=== PATIENT | female | born 1970 | race Caucasian/White ===

== ENCOUNTER → 2023-03-17 08:56 | Outpatient (CLI) | payer BC, SELFPAY ==
--- NOTE | ~2023-03-17 | US_ITS ---
Abdominal Sonogram: Real-time sonographic imaging of the abdomen was performed. Clinical History: Epigastric pain Findings: The liver appears echogenic, with no evidence of mass lesion or bile duct dilatation. Main portal vein demonstrates normal direction of flow. The spleen is normal in size without evidence of focal lesion. The gallbladder is well distended, and appears normal with no evidence of gallstone or wall thickening. The common bile duct measures 4 mm. The visualized pancreas, aorta, and IVC are un remarkable. The right kidney measures 9.0 cm in length and the left kidney measures 10.4 cm. There is no hydronephrosis or renal calculus. Impression: Diffuse fatty infiltration of the liver. Reviewed, dictated and finalized at location M. Impression: Diffuse fatty infiltration of the liver.
== END ==
PROVIDERS: PCP Physician Assistant; Visit Provider Physician Assistant
DX: R10.13 Epigastric pain (principal); K76.0 Fatty (change of) liver, not elsewhere classified
CPT/HCPCS: 76700

== ENCOUNTER 2023-04-20 07:28 | Outpatient (CLI) | payer BC, SELFPAY ==
--- NOTE | ~2023-04-20 | NM_ITS ---
EXAMINATION: NM hepatobiliary wo pharm DATE: 04/20/2023 10:41 COMPUTER BOOKKEEPER INDICATION: Epigastric pain COMPARISON: Ultrasound dated 03/17/2023. TECHNIQUE: 5 mCi Tc-99m mebrofenin (Choletec) was administered intravenously. Scintigraphic images o f the abdomen were obtained for one hour. At the 1 hour time point, the patient drank 8 oz Ensure, an d imaging was continued for 60 minutes. Gallbladder ejection fraction was calculated by the technolog ist. FINDINGS: There is normal clearance of radiotracer from the blood pool. There is homogeneous tracer u ptake by the liver. Activity progresses to the bowel and gallbladder. The gallbladder ejection fract ion is 72%. Note that with this technique, normal GBEF >= 33%. IMPRESSION: 1. Normal hepatobiliary scan. Reviewed, dictated and finalized at location A. UTER BOOKKEEPER
== END 2023-04-20 07:29 | disposition home or self-care (01) ==
PROVIDERS: PCP Physician Assistant; Visit Provider Nurse Practitioner Family
DX: R10.13 Epigastric pain (principal)
CPT/HCPCS: 78226; A9537

== ENCOUNTER 2023-08-09 14:30 | Outpatient (CLI) | payer BC, SELFPAY ==
--- NOTE | 2023-08-09 14:41 | ECG_ITS ---
Measurements Intervals Carriere Rate: 73 P: 40 IA: 177 QRS: 4 QRSD: 82 T: 49 QT: 389 QTc: 430 Interpretive Statements SINUS RHYTHM MINIMAL VOLTAGE CRITERIA FOR LVH, CONSIDER NORMAL VARIANT [MEETS CRITERIA IN ONE OF: R(aVL), S(V1), R(V5), R(V5/V6)+S(V1)] NONSPECIFIC T-WAVE ABNORMALITY BORDERLINE ECG NO PREVIOUS ECG AVAILABLE FOR COMPARISON Electronically Signed On 08-09-2023 15:42:45 FIELD TRAINER by Mike Gutierrez M.D.
[2023-08-09 15:37] LABS: Anion Gap 7 mmol/L (8-16); Blood Urea Nitrogen 7 mg/dL (7-17); Calcium 9.6 mg/dL (8.4-10.2); Carbon Dioxide 30 mmol/L (22-30); Chloride 102 mmol/L (98-107); Estimated Glomerular Filt Rate > 60; Glucose 123 mg/dL (65-110); Potassium 3.5 mmol/L (3.4-5.0); Sodium 139 mmol/L (137-145)
== END 2023-08-09 14:31 | disposition home or self-care (01) ==
PROVIDERS: Anesthesiology; PCP Nurse Practitioner Family; Visit Provider Surgery
DX: K44.9 Diaphragmatic hernia without obstruction or gangrene (principal); Z79.899 Other long term (current) drug therapy; I47.10 Supraventricular tachycardia, unspecified; Z01.818 Encounter for other preprocedural examination
CPT/HCPCS: 36415; 80048; 86850; 86900; 86901; 93005

== ENCOUNTER 2023-08-16 01:11 | Day surgery (SDC) | payer BC, SELFPAY ==
[2023-08-09 11:05] VITALS: BMI 33.9
--- NOTE | 2023-08-09 11:10 | PC.NURSE ---
Report to the Outpatient Waiting Room, entrance under the green pavilion located off [facility], at time 11:30 on date 08/16/23. Planned Procedure Time: 1:30. Time changes happen often and if your time is changed the preop area will call you the afternoon before. - You and your visitor will be asked to self-screen and do not enter if you have any COVID symptoms. - A mask is optional within the hospital at this time. Patients may have clear liquids FOR DINNER NIGHT BEFORE SURGERY. - No food from midnight until time of surgery Take the following medications with a SIP of water the morning of surgery: NONE DO NOT STOP ANY OF YOUR OTHER PRESCRIPTION MEDICATIONS PRIOR TO SURGERY ?EXCEPT THE FOLLOWING Medications to discontinue per physician: N/A Date to take last dose: N/A Please no make-up, nail uzbek, hairspray, perfume, deodorant, or body powder the day of surgery. No jewelry (including any body piercings) or valuables the day of surgery, leave them at home. Please take a shower or bath the night before, or the morning of, surgery with an antibacterial soap. Wear comfortable, loose fitting clothing. - Jewelry must be removed prior to entering the operating room. Rings and piercings that are not removed may be cut off. - The hospital will not accept responsibility for valuables. - Please leave all valuables, including medications, at home the day of surgery. If you are going home after surgery, a licensed entry driver operator must drive you home. - NO public transportation without another adult if you receive anesthesia. - We recommend that an adult stay with you for 24 hours following discharge. - We also recommend that you do not drive, make important decision, drink alcoholic beverages, or take any drugs that were not prescribed by your health care provider for at least 24 hours after your discharge time. Follow any additional instructions given to you from your surgeon. If you or anyone in your household have experienced Covid symptoms in the past week, please notify your surgeon or the nurse liaison at the phone number below for possible testing. Telephone instructions given to PT - BING EDWARDS and asked if any additional questions and then verbalized understanding. Patient advised to call surgeon office or pre surgery nurse liaison [phone] if any additional questions.
[2023-08-16] VITALS (17 sets, daily range): BP systolic 107–140; BP diastolic 60–86; PULSE 62–83; RESP 12–20; TEMP 36.3–37.2; O2SAT 92–99
--- NOTE | 2023-08-16 12:09 | WPDHPUPDATE1 ---
History and Physical Update Update Date/Time: 08/16/23 12:09 History and Physical has been reviewed, including an updated exam of the patient. There are NO changes in the patient's condition. Risks, benefits, and alternatives have been discussed and questions answered. Patient agrees to proceed with procedure.
[2023-08-16] MEDS: LACTATED RINGERS 1,000 ML 30 ML IV CONT ×2 (12:15→15:25)
[2023-08-16] MEDS: ACETAMINOPHEN 500 MG TABLET 1000 MG PO (12:20)
[2023-08-16] MEDS: KETOROLAC 15 MG/ML VIAL (*BKC) IV PUSH (12:20)
[2023-08-16] MEDS: ceFAZolin 2 GM/D5W 50 ML 2 GM/50 ML BAG IVPB (12:46)
[2023-08-16] MEDS: BUPIVACAINE/EPINEPHRINE 0.5% 30 ML VIAL INFILTRATE (13:45)
--- NOTE | 2023-08-16 15:31 | W.PM.PROC2 ---
Procedure Note - Detailed Date of Procedure 08/16/23 Pre-op Diagnosis GERD, Hiatal Hernia Post-op Diagnosis Same Procedure Performed Robotic assisted laparoscopic paraesophageal hernia repair with 270 degree fundoplication Surgeon Iglesia Adams, DO Anesthesia General and Local (0.5% bupivicaine with epi) Indications This is a 53-year-old woman who presented with a long history of GERD symptoms. She has been on a proton pump inhibitor for years. She has tried increasing doses as well as dietary modifications but still continues to have refractory symptoms. She had a prior EGD which showed evidence of a hiatal hernia. Esophageal manometry was performed which showed evidence of a hiatal hernia but normal esophageal motility. Discussions were made with the patient about treatment options and decision was made to proceed with robotic assisted laparoscopic hiatal hernia repair and fundoplication. Findings Robotic assisted laparoscopic hiatal hernia repair with 270 degree fundoplication was performed. The patient was found to have a type 3 hiatal hernia with the GE junction several cm above the hiatus and a portion of the cardia and fundus protrude up into hiatus. I carefully dissected the hernia sac free from the mediastinum and mobilized enough esophagus to allow about 4 cm of esophagus to lie within the abdominal cavity without tension. Then chose to perform a 270 degree toupee fundoplication. No specimens were obtained for pathology. Description of Procedure Procedure as well as risks, benefits, and alternatives were discussed with the patient. Written consent was obtained and placed in chart prior to procedure. Patient was brought back to surgical suite. She was placed supine on operating table. Time-out was done to confirm patient and procedure. She was then intubated by the anesthesia department. Her abdomen was prepped and draped in sterile fashion using chlorhexidine prep. 0.5% bupivacaine with epinephrine was infiltrated locally around each area for port placement. An 8 mm incision was made in the left upper quadrant 2 cm inferior to the costal margin in the mid clavicular line. A 5 mm Optiview trocar was then advanced through the abdominal layers under direct visualization. Once inside the abdominal cavity, carbon dioxide insufflation was used to create a pneumoperitoneum. The camera was inserted in the abdomen was inspected. No immediate abnormalities were identified. Another 8 mm camera port was placed about 15 cm inferior to the xiphoid just to the left of midline under direct visualization. An 8 mm port was placed in the anterior axillary line on the left upper quadrant at about the same transverse plane as the camera port. An 8 mm port was placed in the right upper quadrant and another 8 mm AirSeal assist port was placed in right lower quadrant just to the right of the umbilicus. A 5 mm incision was made in the subxiphoid region and the Beba liver retractor was inserted through this incision into the abdominal cavity to lift up the left lobe of the liver. This was secured in place to the bed of the table. The patient was then placed in 30? reverse Trendelenburg. The robotic arms were secured to the ports and the robotic camera and instruments were inserted. A force bipolar grasper was placed in the right upper quadrant port. The vessel sealer was placed in the midclavicular left upper quadrant port and a Cadiere grasper was placed in the anterior axillary line left upper quadrant port. I then moved over to the robotic console took control of the camera and instruments. A careful thorough exam was performed throughout the abdomen. The stomach was then reduced from within the hiatal hernia. The gastrohepatic ligament was taken down medially using hook electrocautery to identify the right vernon. Peritoneum along the medial side of the right vernon was then dissected using hook electrocautery. This allowed me to enter into the avas
--- NOTE | 2023-08-16 17:05 | SUR.PHASEI ---
Floor RN has to call back for report.
--- NOTE | 2023-08-16 17:50 | ADMGEN ---
This patient, Maritza Rod, was admitted to [facility] Surg Room 329-01. Patient/family oriented to hospital policies and general routines including ID bracelet, bed and alarms, visiting hours, pain management, procedures, bathroom and other care routines, personal items, smoking policy, room service/diet, and visiting hours. Information on how to activate the Rapid Response Team has been discussed. Patient/Family are encouraged to report perceived risks to care and to ask questions if they do not understand what they are told or what they should do.
[2023-08-16] MEDS: LACTATED RINGERS 1,000 ML 100 ML IV CONT (17:59)
[2023-08-16] MEDS: oxyCODONE HCL (*CRX) 2.5 MG TAB IR PO (19:51)
[2023-08-16] MEDS: NEBIVOLOL HCL 5 MG TABLET 10 MG PO (19:53)
[2023-08-17] MEDS: MORPHINE SULFATE (*CRX) 2 MG/ML INJ IV PUSH (01:13)
[2023-08-17 03:22] VITALS: BP 118/68; PULSE 66; RESP 18; TEMP 36.8; O2SAT 96
[2023-08-17] MEDS: oxyCODONE HCL (*CRX) 2.5 MG TAB IR PO (05:28)
[2023-08-17 06:32] LABS: Hematocrit 38.8 % (37.0-47.0); Hemoglobin 12.3 g/dL (12.0-15.0); Mean Corpuscular HGB Conc 31.7 g/dl (32-36); Mean Corpuscular Hemoglobin 29.6 pg (26-34); Mean Corpuscular Volume 93.5 fl (80-100); Mean Platelet Volume 10.4 fl (7.4-10.4); Platelet Count Result 361 k/mm3 (150-375); Red Blood Count 4.15 M/mm3 (4.2-5.4); Red Cell Distribution Width 13.9 % (11.5-14.5); White Blood Count 15.3 K/mm3 (4.5-10.0)
[2023-08-17 06:50] LABS: Anion Gap 8 mmol/L (8-16); Blood Urea Nitrogen 9 mg/dL (7-17); Calcium 9.3 mg/dL (8.4-10.2); Carbon Dioxide 27 mmol/L (22-30); Chloride 102 mmol/L (98-107); Estimated CRCL calculation 80 ml/min; Estimated Glomerular Filt Rate > 60; Glucose 111 mg/dL (65-110); Potassium 3.8 mmol/L (3.4-5.0); Sodium 137 mmol/L (137-145)
[2023-08-17 07:22] VITALS: BP 144/72; PULSE 77; RESP 18; TEMP 36.3; O2SAT 98
[2023-08-17] MEDS: ENOXAPARIN 40 MG/0.4 ML SYRINGE SUB-Q (08:06)
[2023-08-17] MEDS: PANTOPRAZOLE 40 MG TABLET PO (08:06)
[2023-08-17] MEDS: hydroCHLOROthiazide 25 MG TABLET PO (08:06)
--- NOTE | 2023-08-17 08:51 | WPDANESPN ---
Anes - Prog Note Post-Op Date/Time: 08/17/23 08:51 Vital Signs: Last Vital Signs Temp 36.8 C 08/17/23 03:22 Pulse 66 08/17/23 03:22 Resp 18 08/17/23 03:22 BP 118/68 08/17/23 03:22 Pulse Ox 96 08/17/23 03:22 O2 Del Method Room Air 08/17/23 08:06 O2 Flow Rate 10 08/16/23 16:10 Pain Score (VAS): 2. no abdominal pain, just discomfort from gas pain. I/O: Intake & Output 08/16/23 08/17/23 08/17/23 23:59 07:59 15:59 Intake Total 600 1000 Balance 600 1000 Laboratory Tests 08/17/23 05:45 08/17/23 05:45 08/17/23 05:45 WBC 15.3 H RBC 4.15 L Hgb 12.3 Hct 38.8 MCV 93.5 MCH 29.6 MCHC 31.7 L RDW 13.9 Plt Count 361 MPV 10.4 Sodium 137 Potassium 3.8 Chloride 102 Carbon Dioxide 27 Anion Gap 8 BUN 9 Creatinine 0.80 Estim Creat Clear Calc 80 Estimated GFR > 60 Glucose 111 H Calcium 9.3 Patient Feedback: Patient satisfied with anesthetic care.
[2023-08-17] MEDS: IBUPROFEN 600 MG TABLET PO ×2 (09:59→15:53)
[2023-08-17] MEDS: SIMETHICONE 80 MG TAB.CHEW PO ×3 (10:00→15:53)
[2023-08-17 11:22] VITALS: BP 140/70; PULSE 80; RESP 18; TEMP 36.3; O2SAT 99
--- NOTE | 2023-08-17 14:22 | PM.DS ---
DS: Admitting Diagnosis Discharge Date 08/17/23 Admitting Diagnosis Hiatal hernia GERD DS: Discharge Diagnosis Discharge Diagnosis (1) GERD (gastroesophageal reflux disease): Qualifiers: Esophagitis presence: esophagitis presence not specified Qualified Code(s): K21.9 - Gastro-esophageal reflux disease without esophagitis Code(s): K21.9 - Gastro-esophageal reflux disease without esophagitis Status: Acute (2) Hiatal hernia: Code(s): K44.9 - Diaphragmatic hernia without obstruction or gangrene Status: Acute DS: Summary Hospital Course Reason for hospitalization: This is a 53-year-old woman who presented to the office for evaluation by Dr. Adams with a long history of GERD symptoms.? She has been on a proton pump inhibitor for years.? She has tried increasing doses as well as dietary modifications but still continued to have refractory symptoms.? She had a prior EGD which showed evidence of a hiatal hernia.? Esophageal manometry was performed which showed evidence of a hiatal hernia but normal esophageal motility.? Decision was made to proceed with robotic assisted laparoscopic hiatal hernia repair and fundoplication, which she presented for electively yesterday. Hospital Course: Patient had a robotic assisted laparoscopic paraesophageal hernia repair with [address] Adams on 08/16/23. She was admitted postoperatively and started on clear liquids. The night of surgery, she had some bilateral upper back and shoulder pain that radiated into her neck. This improved during the day postop day 1. She was passing flatus and tolerating clear liquids well without any dysphagia, reflux, or nausea. She was advanced to full liquids and was tolerating this well prior to discharge. Pain was well-controlled and she was tolerating activity. Patient stable for discharge this afternoon with follow-up scheduled for 2 weeks in our office with Dr. Adams. Discharge instructions discussed with the patient in detail. Status at Discharge Functional status at discharge: independent ambulation Overall status at discharge: patient is progressing back to baseline Time Spent with Patient Time attestation: Total time spent providing and/or coordinating discharge services: Time spent: Less than 30 minutes Exam Const: General: comfortable and no acute distress Resp: Effort & Inspection: normal respiratory effort Auscultation: clear to auscultation bilaterally Cardio: Rate: regular rate Rhythm: regular rhythm GI: Inspection: non-distended and incision (incisions dry and intact) GI Palp: Yes Soft to palpation, Yes Tenderness to palpation present (GI) (incisional) and No Guarding due to palpation present (GI) Auscultation: normal bowel sounds Neuro: General: moves all extremities and no focal motor deficits Extrem: General: no edema Psych: Mental Status: mental status grossly normal Insight: Good insight present (Psych) DS: Data Data Completed and Pending Labs on day of discharge: Labs from last 24 hours 08/17/23 05:45 WBC 15.3 H RBC 4.15 L Hgb 12.3 Hct 38.8 MCV 93.5 MCH 29.6 MCHC 31.7 L RDW 13.9 Plt Count 361 MPV 10.4 Sodium 137 Potassium 3.8 Chloride 102 Carbon Dioxide 27 Anion Gap 8 BUN 9 Creatinine 0.80 Estim Creat Clear Calc 80 Estimated GFR > 60 Glucose 111 H Calcium 9.3 Procedures/Treatments: Procedures Operation Date: 08/16/23 13:30 Actual Procedure Side Surgeon p Laparoscopic Hiatal Hernia Repair with Fundoplication, Davinci Assisted Iglesia Adams DO Discharge Plan Discharge Attending physician on discharge: Woodrow Gómez Discharging Clinician: Mary Gray Patient Disposition: Home, Self-Care Activity: may shower and other - see discharge instructions Diet: other - see discharge instructions Wound Care Instructions: incision open to air Discharge Instructions: DISCHARGE INSTRUCTION SHEET FOR GE
[2023-08-17 15:22] VITALS: BP 144/70; PULSE 78; RESP 20; TEMP 36.4; O2SAT 99
== END 2023-08-17 18:40 | disposition home or self-care (01) ==
LOC: ANHSURGERY 11:33 → ANH3MEDSUR 17:45
PROVIDERS: PCP Nurse Practitioner Family; Visit Provider Surgery
PROC: 0DV44ZZ Restriction of Esophagogastric Junction, Percutaneous Endoscopic Approach (ICD-10-PCS; CPT 43280; principal; 2023-08-16 13:30)
DX: K44.9 Diaphragmatic hernia without obstruction or gangrene (principal); K21.9 Gastro-esophageal reflux disease without esophagitis; E78.5 Hyperlipidemia, unspecified; F41.9 Anxiety disorder, unspecified
CPT/HCPCS: 43281; S2900; 36415; 80048; 85027; 86850; 86900; 86901; 93005; A9270; J0330; J0690; J1100; J1170; J1200; J1650; J1885; J2250; J2270; J2405; J2704; J3010; J7030; J7120